=== PATIENT | female | born 1980 | race Caucasian/White ===

== ENCOUNTER 2018-02-14 15:55 | Emergency (ER) | payer MEDICAID, OTHER ==
[~2018-02-14] VITALS: Ht 154.9 cm; Wt 58.3 kg
[2018-02-14 16:10] VITALS: BP 166/99
[2018-02-14 16:49] LABS: BASOPHILS # (AUTO) 0.02 x10^3/uL (0-0.1); BASOPHILS % (AUTO) 0 % (0-1); EOSINOPHILS # (AUTO) 0.08 x10^3/uL (0-0.4); EOSINOPHILS % (AUTO) 2 % (1-7); LYMPHOCYTES # (AUTO) 1.55 x10^3/uL (1-3.4); LYMPHOCYTES % (AUTO) 30 % (22-44); MD NO; MEAN CORPUSCULAR HEMOGLOBIN 23.8 pg (27.0-34.8); MEAN CORPUSCULAR HGB CONC 31.8 g/dL (32.4-35.8); MEAN CORPUSCULAR VOLUME 74.8 fL (80-100); MONOCYTES # (AUTO) 0.29 x10^3/uL (0.2-0.8); MONOCYTES % (AUTO) 6 % (2-9); NEUTROPHILS # (AUTO) 3.28 x10^3/uL (1.8-6.8); NEUTROPHILS % (AUTO) 63 % (42-75); PLATELET COUNT 284 x10^3/uL (130-400); RED BLOOD COUNT 4.63 x10^6/uL (3.82-5.3)
[2018-02-14 16:59] LABS: ALANINE AMINOTRANSFERASE 19 U/L (12-78); ALBUMIN 3.9 g/dL (3.4-5.0); ANION GAP 8 mmol/L (5-15); CALCIUM 8.9 mg/dL (8.5-10.1); CHLORIDE 106 mmol/L (98-107); CREATININE 0.77 mg/dL (0.55-1.02)
[2018-02-14 17:01] LABS: ALKALINE PHOSPHATASE 86 U/L (45-117); BILIRUBIN,TOTAL 0.6 mg/dL (0.2-1.0); TOTAL PROTEIN 7.5 g/dL (6.4-8.2)
[2018-02-14] MEDS ORDERED: HYDROcodone/APAP 5/325 TABLET PO STA (18:39)
[2018-02-14] MEDS ORDERED: HYDROcodone/APAP 5/325 TABLET ONE (18:45)
[2018-02-14 19:57] LABS: HCG UR SG 1.018 (1.003-1.030); MICROSCOPIC NOT IND
[2018-02-14 20:00] LABS: CULTURE INDICATED? NO
== END 2018-02-14 20:59 | disposition home or self-care (01) ==
LOC: ED 20:03
DX: N93.8 Other specified abnormal uterine and vaginal bleeding (principal); R10.2 Pelvic and perineal pain; I10 Essential (primary) hypertension; F41.1 Generalized anxiety disorder; F17.210 Nicotine dependence, cigarettes, uncomplicated
CPT/HCPCS: 36415; 76830; 80053; 81003; 81025; 85025; 99285

== ENCOUNTER 2019-12-13 22:39 | Emergency (ER) | payer MEDICAID ==
[~2019-12-13] VITALS: Ht 157.5 cm; Wt 52.6 kg
[2019-12-13 22:54] VITALS: BP 154/91
== END 2019-12-14 01:16 ==
LOC: ED 12-14 01:09
DX: G43.909 Migraine, unspecified, not intractable, without status migrainosus (principal); R11.0 Nausea; R10.32 Left lower quadrant pain; H53.149 Visual discomfort, unspecified
CPT/HCPCS: 99281